=== PATIENT | female | born 1995 | race Caucasian/White ===

== ENCOUNTER 2018-10-06 20:59 | Emergency (ER) | payer BC ==
[~2018-10-06] VITALS: Ht 160 cm; Wt 59.0 kg
[~2018-10-06 20:59] MED LIST: ONDA4TAB6 PO
[2018-10-06 21:14] VITALS: BP 146/88
== END 2018-10-06 23:27 | disposition home or self-care (01) ==
LOC: ER 21:00
DX: R51 Headache (principal); M54.2 Cervicalgia; H53.8 Other visual disturbances; W22.03XA Walked into furniture, initial encounter; Y93.89 Activity, other specified; Y92.89 Other specified places as the place of occurrence of the external cause; Y99.8 Other external cause status
CPT/HCPCS: 72040; 99283